=== PATIENT | female | born 1950 | race Caucasian/White ===

== ENCOUNTER → 2023-10-15 08:35 | Outpatient (REF) | payer MEDICARE, OTHER, SELFPAY ==
[2023-10-15 10:10] LABS: ALT (SGPT) 37 U/L (0-35); AST (SGOT) 47 U/L (14-36); Albumin 4.2 g/dl (3.5-5.0); Alkaline Phosphatase 100 U/L (38-126); Amylase 70 U/L (30-110); Direct Bilirubin 0.3 mg/dl (0.0-0.4); Lipase 57 U/L (23-300); Total Bilirubin 0.5 mg/dl (0.2-1.3); Total Protein 7.2 g/dl (6.3-8.2)
== END ==
LOC: REG 08:35
PROVIDERS: ATTENDING PHYSICIAN Family Medicine
DX: K90.0 Celiac disease (principal); R10.13 Epigastric pain; R14.0 Abdominal distension (gaseous)
CPT/HCPCS: 36415; 80076; 82150; 83690

== ENCOUNTER → 2023-10-19 08:45 | Outpatient (REF) | payer MEDICARE, OTHER, SELFPAY | LOC: HWRAD 08:45 | PROVIDERS: ATTENDING PHYSICIAN Family Medicine | DX: R10.13 Epigastric pain (principal); K90.0 Celiac disease; R14.0 Abdominal distension (gaseous) | CPT/HCPCS: 74177; Q9967 ==

== ENCOUNTER → 2024-05-23 08:04 | Outpatient (REF) | payer MEDICARE, OTHER, SELFPAY | LOC: WDC 08:04 | PROVIDERS: ATTENDING PHYSICIAN Obstetrics & Gynecology Gynecology; FAMILY PHYSICIAN Family Medicine | DX: Z12.31 Encounter for screening mammogram for malignant neoplasm of breast (principal) | CPT/HCPCS: 77063; 77067 ==

== ENCOUNTER → 2024-07-04 10:39 | Outpatient (REF) | payer MEDICARE, OTHER, SELFPAY | LOC: RCS 10:39 | PROVIDERS: ATTENDING PHYSICIAN Internal Medicine; FAMILY PHYSICIAN Family Medicine | DX: Z95.2 Presence of prosthetic heart valve (principal); I34.0 Nonrheumatic mitral (valve) insufficiency; I25.10 Atherosclerotic heart disease of native coronary artery without angina pectoris | CPT/HCPCS: 93306 ==